=== PATIENT | female | born 1965 | race Caucasian/White ===

== ENCOUNTER 2017-04-13 07:18 | Emergency (ER) | payer OTHER ==
[~2017-04-13] VITALS: Ht 157.5 cm; Wt 74.8 kg
--- NOTE | ~2017-04-13 | CR20 ---
[facility] A Service of [facility] & [facility] RADIOLOGY TEXT RESULTS PATIENT: LIZETH GRANT LOCATION: [place] : 69 UNIT #: [id number] AGE: [address]: Brielle Zaidi APRN SEX: F ORDER DR: [id number] [facility] [address] [place], [place] [address] [id number] E MR#: [id number] Acc #: [id number] NAME: LIZETH GRANT : 1965 SEX: F STUDY DATE/TIME: 04/13/2017 7:56 UNIT: [facility] ROOM: STUDY DESCRIPTION: CR Ankle Min 3 Views Lt Attending Physician: Brielle Zaidi A.P.R.N. Ordering Physician: Ed Doctor [id number] [facility] Primary Care Physician: Lydia Mejia M.D. MEDICAL IMAGING REPORT This report is preliminary unless electronic signature is present EXAM Left ankle series, 04/13/2017 HISTORY Pain, swelling lateral sides of both ankles, right foot 2.5 weeks. No known injury. FINDINGS AP lateral and oblique radiographs of the left ankle are presented. No fracture or malalignment. Joint spaces are intact. Soft tissue swelling lateral malleolar region and anterior aspect of the ankle. Correlate with exam. There is no soft tissue defect, subcutaneous air or radiodense foreign body. Dictated by... Lucas Bangura M.D. THIS IS AN ELECTRONICALLY VERIFIED REPORT Lucas Bangura M.D. at 04/15/2017 2:47 PM Jenny TD: 04/13/2017 12:08 JOB #: [id number] MEDICAL IMAGING REPORT Page 1 of 1 COPY
--- NOTE | ~2017-04-13 | CR127 ---
[facility] A Service of [facility] & [facility] RADIOLOGY TEXT RESULTS PATIENT: LIZETH GRANT LOCATION: [facility] : 69 UNIT #: [id number] AGE: [address]: Brielle Zaidi APRN SEX: F ORDER DR: [id number] [facility] [address] [place], [place] [address] [id number] E MR#: [id number] Acc #: [id number] NAME: LIZETH GRANT : 1965 SEX: F STUDY DATE/TIME: 04/13/2017 7:56 UNIT: [facility] ROOM: STUDY DESCRIPTION: CR Foot Complete Min 3 View Rt Attending Physician: Brielle Zaidi A.P.R.N. Ordering Physician: Ed Doctor [id number] [facility] Primary Care Physician: Lydia Mejia M.D. MEDICAL IMAGING REPORT This report is preliminary unless electronic signature is present EXAM Right foot series 04/13/2017 HISTORY Trauma 2.5 weeks. Pain, swelling lateral sides of both ankles right foot. FINDINGS AP, lateral and oblique radiographs of the right foot are presented. There is a complete obliue fracture of the right lateral malleolus. Please see right ankle series for full evaluation. No other fractures are seen. Joint spaces are intact. 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 This is a normal variant. There is no soft tissue defect, subcutaneous air or radiodense foreign body. Small plantar calcaneal spur. Soft tissue swelling anterior aspect of the ankle. Dictated by... Lucas Bangura M.D. THIS IS AN ELECTRONICALLY VERIFIED REPORT Lucas Bangura M.D. at 04/15/2017 2:47 PM TOLU/milton TD: 04/13/2017 12:57 JOB #: [id number] MEDICAL IMAGING REPORT Page 1 of 1 COPY
--- NOTE | ~2017-04-13 | CR21 ---
[facility] A Service of [facility] & [facility] RADIOLOGY TEXT RESULTS PATIENT: LIZETH GRANT LOCATION: [facility] : 69 UNIT #: [id number] AGE: [address]: Brielle Zaidi APRN SEX: F ORDER DR: [id number] [facility] [address] [place], [place] [address] [id number] E MR#: [id number] Acc #: [id number] NAME: LIZETH GRANT : 1965 SEX: F STUDY DATE/TIME: 04/13/2017 7:56 UNIT: [facility] ROOM: STUDY DESCRIPTION: CR Ankle Min 3 Views Rt Attending Physician: Brielle Zaidi A.P.R.N. Ordering Physician: Ed Doctor [id number] [facility] Primary Care Physician: Lydia Mejia M.D. MEDICAL IMAGING REPORT This report is preliminary unless electronic signature is present EXAM Right ankle series HISTORY Pain, swelling, lateral sides both ankles. 2.5 weeks. No known injury. FINDINGS AP lateral and oblique radiographs of the right ankle are presented. There is a complete oblique fracture of the upper aspect right lateral malleolus. The patient indicates no known trauma. Please review history. Fracture plane enters the superolateral aspect of the ankle mortise joint and there is mild widening of the lateral aspect of the ankle mortise joint. The joint remains normally located and aligned overall. The lateral malleolar distal fracture fragment is displaced posterolaterally by up to about 3.0 mm. Minimal distraction. No significant angulation. No other fractures. Possible small joint effusion. Soft tissue swelling anterior and lateral aspects of ankle without soft tissue defect. No subcutaneous air or radiodense foreign body. Dictated by... Lucas Bangura M.D. THIS IS AN ELECTRONICALLY VERIFIED REPORT Lucas Bangura M.D. at 04/15/2017 2:47 PM Jenny TD: 04/13/2017 12:05 JOB #: [id number] MEDICAL IMAGING REPORT Page 1 of 1 COPY
== END 2017-04-13 09:25 | disposition home or self-care (01) ==
LOC: CFTX 07:18 → CED 07:18 → CFTX 08:16
DX: S82.61XA Displaced fracture of lateral malleolus of right fibula, initial encounter for closed fracture (principal); S99.912A Unspecified injury of left ankle, initial encounter; X50.1XXA Overexertion from prolonged static or awkward postures, initial encounter; Y92.69 Other specified industrial and construction area as the place of occurrence of the external cause; Y99.0 Civilian activity done for income or pay
CPT/HCPCS: 29540; 73610; 73630; 99283